=== PATIENT | female | born 1995 | race African-American/Black ===

== ENCOUNTER 2017-09-10 18:54 | Emergency (ER) | payer OTHER ==
[~2017-09-10] VITALS: Ht 167.6 cm; Wt 52.2 kg
[2017-09-10] MEDS ORDERED: VITAFOL-OB+DHA1 EACH PO (19:15)
[2017-09-10 19:38] VITALS: BP 127/71
== END 2017-09-10 20:01 | disposition home or self-care (01) ==
LOC: ER 18:54
DX: Z34.01 Encounter for supervision of normal first pregnancy, first trimester (principal)